=== PATIENT | male | born 1955 | race Caucasian/White ===

== ENCOUNTER 2017-11-05 12:23 | Day surgery (SDC) | payer OTHER ==
[~2017-11-05] VITALS: Ht 182.9 cm; Wt 81.8 kg
--- NOTE | ~2017-11-05 | OP ---
PATIENT NAME: GUERA CEDEÑO MEDICAL RECORD: [id number] :53 LOCATION:D.MS [id number] ADMISSION DATE:11/05/17 SURGEON: GLENNA RAMIREZ, DATE OF OPERATION: 11/05/2017 PROCEDURE PERFORMED: Right olecranon open reduction internal fixation. PREOPERATIVE DIAGNOSIS: Closed displaced right olecranon fracture, intraarticular. POSTOPERATIVE DIAGNOSIS: Closed displaced right olecranon fracture, intraarticular. INDICATIONS: Mr. Cedeño is a 62-year-old male who fell about 4-5 feet off ladder today onto his right elbow and came to the ER after being very swollen and tender and x-rays and CT was taken and seen to have a displaced olecranon fracture that is comminuted and the ER called me and I looked at the x-rays and I asked when he last ate which was at 7 this morning, so decided to fix it today. I discussed the procedure with him as well as the risks and benefits including damage to nerves, vessels, numbness, tingling, need for further surgery, infection, loss of fixation. He was understanding of this as well as loss of motion of the elbow and he consented to procedure. DESCRIPTION OF PROCEDURE: The patient was given a block in the preoperative area by anesthesia and then taken to the operative suite, laid in the left lateral decubitus position with her right arm up with an axillary roll underneath the axilla. LMA was placed. A tourniquet was placed high up on the arm and then the right arm was prepped and draped with a tourniquet under it. Once this was done, a timeout was performed and everyone was in agreeance with the correct side, site, and the patient. He had been given 2 grams Ancef, then marked out the incision starting medial and curving around the olecranon radially and then the right upper extremity was exsanguinated with an Esmarch and tourniquet was inflated. Tourniquet was up for 50 minutes. Careful dissection was made down to the olecranon itself pulling the flap more ulnar in order to expose the olecranon and a fracture was encountered. It was cleaned out with a curette and irrigated and then reduced. Once it was reduced, a K-wire was put in to hold it in place. Then, the olecranon plate was put on and a K-wire was put in the olecranon plate. Once they were in satisfactory position, a locking screw was placed in the plate and then a compression screw more distally with a washer. Then, the long screw through the olecranon process itself into the ulna was put in place, a 55 cortical screw was put in that 55-mm. We then locked 1 more screw more proximally into the proximal fracture fragment and then locked 3 more screws distally with a total of 7 screws in the plate, a Biomet plate. This is all done under fluoroscopy with a nice reduction of the fracture on x-rays and the plate was sitting in good position on the ulna. To stable elbow, it was ranged, seem to have full range of motion and the tourniquet was let down at 50 minutes. After tourniquet was let down, any bleeders were coagulated and then the skin was closed with 2-0 Vicryl and inverted interrupted fashion and then 4-0 Monocryl was run on the skin. Then, a ZipLine was placed over that and then Adaptic, 4 x 4s, ABDs and Webril were wrapped on that and a well-padded splint was placed anteriorly with the arm in extension on the anterior surface of the arm, secured with an Ji wrap, 6 inch and 4 inch. The patient was then awakened and taken to recovery in stable condition. Blood loss was approximately 50 mL. OPERATIVE REPORT [id number] GUERA CEDEÑO COMPLICATIONS: None. TRANSINT:[id number] Voice Confirmation ID: [id number] DOCUMENT ID: [id number] GLENNA RAMIREZ DO at 1017 CC: [id number] DICTATION DATE: 11/05/17 230 COPY EDITOR: 11/06/17 0341 ADM IN [facility] [address] [place] [address]
[2017-11-05] MEDS ORDERED: LISINOPRIL-HCTZ1 T13 PO (23:57)
[2017-11-06] VITALS: BP 141/89
[2017-11-06 03:23] VITALS: BP 146/81; Ht 182.9 cm; Wt 81.8 kg
[2017-11-06 04:00] VITALS: BP 101/57
[2017-11-06 06:32] LABS: BASOPHILS 0.1 % (0-2); EOSINOPHILS 0 % (0-7); HEMATOCRIT 44.3 % (42.0-54.0); HEMOGLOBIN 15.2 g/dL (13.5-17.5); IMMATURE GRANULOCYTES 0.1 % (0-5); LYMPHOCYTES 5.9 % (15-50); MCH 32.7 pg (26.0-34.0); MCHC 34.3 g/dL (31.0-37.0); MCV 95.3 fL (80.0-100.0); MEAN PLATELET VOLUME 9.8 fL (7.4-10.4); MONOCYTES 7.1 % (2-11); NEUTROPHILS 86.8 % (40-80); PLATELET COUNT 214 10x3/uL (130-400); RBC 4.65 10x6/uL (4.20-6.10); RDW 12.8 % (11.5-14.5); WBC 8.1 10x3/uL (4.8-10.8)
[2017-11-06 06:58] LABS: ALBUMIN 3.2 g/dL (3.4-5.0); ALKALINE PHOSPHATASE 69 U/L (46-116); ALT (SGPT) 24 U/L (10-68); BILIRUBIN - TOTAL 0.75 mg/dL (0.2-1.3); CALC OSMOLALITY 277 mosm/kg (275-300); CALCIUM 8.5 mg/dL (8.5-10.1); CARBON DIOXIDE 30.8 mmol/L (21.0-32.0); CHLORIDE - SERUM 100 mmol/L (98-107); POTASSIUM - SERUM 4.3 mmol/L (3.5-5.1); PROTEIN - SERUM 6.2 g/dL (6.4-8.2); SODIUM 137 mmol/L (136-145); UREA NITROGEN 11 mg/dL (7-18); eGFR NON AFRICAN AMERICAN 80 mL/min (90-120)
[2017-11-06 07:01] LABS: GLUCOSE 193 mg/dL (74-106)
[2017-11-06 08:10] VITALS: BP 107/62
[2017-11-06 11:31] VITALS: BP 127/69
[2017-11-06] MEDS ORDERED: OXYCODONE HCL5 MG PO (11:35)
[2017-11-06] MEDS ORDERED: VISTARIL50 MG PO (11:36)
== END 2017-11-06 14:59 | disposition home or self-care (01) ==
LOC: OBSVTIME → D.ER 12:23 → D.OPS 12:23 → EDSTATUS 13:15 → D.MS 16:45 → D.ER 16:45 → OBSVTIME 16:45 → D.OPS 11-06 14:59 → D.MS 11-06 14:59
PROVIDERS: Family Medicine
DX: S52.031A Displaced fracture of olecranon process with intraarticular extension of right ulna, initial encounter for closed fracture (principal); F17.200 Nicotine dependence, unspecified, uncomplicated; Z01.812 Encounter for preprocedural laboratory examination

== ENCOUNTER 2018-01-21 08:24 | Emergency (ER) | payer MEDICAID ==
[2017-11-06 03:23] VITALS: BMI 25.1
[~2018-01-21 08:24] MED LIST: LISINOPRIL-HCTZ1 T13 PO; OXYCODONE HCL5 MG PO; VISTARIL50 MG PO
[2018-01-21 10:48] LABS: BASOPHILS 0.6 % (0-2); EOSINOPHILS 2.8 % (0-7); HEMATOCRIT 47.9 % (42.0-54.0); HEMOGLOBIN 16.1 g/dL (13.5-17.5); IMMATURE GRANULOCYTES 0.2 % (0-5); LYMPHOCYTES 26.8 % (15-50); MCH 31.9 pg (26.0-34.0); MCHC 33.6 g/dL (31.0-37.0); MEAN PLATELET VOLUME 9.2 fL (7.4-10.4); MONOCYTES 11.2 % (2-11); NEUTROPHILS 58.4 % (40-80); PLATELET COUNT 251 10x3/uL (130-400); RBC 5.04 10x6/uL (4.20-6.10); WBC 8.5 10x3/uL (4.8-10.8)
[2018-01-21 10:55] LABS: INR 0.97 (0.85-1.17); PROTIME 12.5 SECONDS (11.6-15.0)
[2018-01-21 11:00] LABS: ALBUMIN 3.4 g/dL (3.4-5.0); ALKALINE PHOSPHATASE 97 U/L (46-116); ALT (SGPT) 32 U/L (10-68); CALC OSMOLALITY 282 mosm/kg (275-300); CALCIUM 9.4 mg/dL (8.5-10.1); CARBON DIOXIDE 32.3 mmol/L (21.0-32.0); CHLORIDE - SERUM 106 mmol/L (98-107); POTASSIUM - SERUM 4.4 mmol/L (3.5-5.1); PROTEIN - SERUM 6.7 g/dL (6.4-8.2); SODIUM 142 mmol/L (136-145); UREA NITROGEN 14 mg/dL (7-18); eGFR NON AFRICAN AMERICAN 80 mL/min (90-120)
[2018-01-21 11:05] LABS: GLUCOSE 87 mg/dL (74-106)
== END 2018-01-21 12:00 | disposition home or self-care (01) ==
LOC: D.ER 08:24
PROVIDERS: Family Medicine
DX: S53.124A Posterior dislocation of right ulnohumeral joint, initial encounter (principal); X58.XXXA Exposure to other specified factors, initial encounter; Y93.89 Activity, other specified; Y92.019 Unspecified place in single-family (private) house as the place of occurrence of the external cause; T84.098A Other mechanical complication of other internal joint prosthesis, initial encounter

== ENCOUNTER 2018-02-21 07:26 | Day surgery (SDC) | payer MEDICAID ==
[~2018-02-21] VITALS: Ht 182.9 cm; Wt 79.4 kg
--- NOTE | ~2018-02-21 | OP ---
PATIENT NAME: GUERA CEDEÑO MEDICAL RECORD: [id number] :53 LOCATION:D.OPS ADMISSION DATE: SURGEON: TIMMY ORTIZ MD DATE OF OPERATION: 02/21/2018 PREOPERATIVE DIAGNOSIS: Failed ORIF right olecranon fracture. POSTOPERATIVE DIAGNOSIS: Failed ORIF right olecranon fracture. PROCEDURE: 1. Revision right olecranon fracture. 2. Addition of bone graft allograft (Vitoss). SURGEON: Timmy Ortiz MD ANESTHESIA: General. INTRAOPERATIVE COMPLICATIONS: None. SUMMARY OF PATHOLOGIC FINDINGS: Since, the patient had a fibrous nonunion of the olecranon fracture, it is my understanding that the patient did demolition 2 days after his prior ORIF and had a rather immediate failure of fixation, did not want anything done; however, because he is unable to extend his elbow and had continued pain, he presented late and asked to have this revised. After discussing the risks, hazards and benefits associated with this and all the perioperative postoperative potential, the patient desired to have the surgery done. OPERATIVE SUMMARY IN DETAIL: After obtaining the appropriate preoperative orthopedic surgery consent as well as anesthetic consultation, evaluation and clearance, the patient was brought to the operating room and placed in the operating table in supine position. After general laryngeal mask airway was administered, tourniquet was placed in the proximal aspect of the right upper extremity. Right upper extremity was then prepped and draped in routine sterile fashion. The arm was elevated and exsanguinated, tourniquet was inflated to 250 mmHg. Previously used incision was also used again. It was taken down to the level of the periosteum, which was gently reflected to reveal the plate. Serial and sequential removal of all the Biomet screws and hardware was done. This was followed by complete takedown of the fibrous union all the way to the joint with visualization, both under fluoroscopy as well as direct visualization. At this point, spcpm-jm-rdess reduction clamps were utilized. It did come back together nicely on x-ray. Hsysn-sb-bvgbgx were taken down again and the Vitoss bone graft was then packed into the graft. It was then reduced again as seen on fluoroscopy, held in place with 2 bnyed-fh-wiipo clamps while the guide pin for the 6.5 Asnis screw was placed down the shaft of the ulna on fluoroscopic planes both AP and lateral. A 120 mm long thread screw was put into place with good compression; however, on the lateral film, the compression was not complete at the joint itself. A second 5-0 double compression screw from Arielle was placed just proximal to this outside the joint, but into the coracoid itself resulting in excellent shinto of the joint line itself. Having completed this, the wound was copiously irrigated. The fascia and periosteum was closed with #1 Vicryl followed by 2-0 Vicryl and skin sivan. Sterile dressings were applied. Tourniquet was deflated. The patient was placed in a posterior splint. He was then awakened, LMA was removed. He was taken to the recovery room in stable condition. All final needle and sponge counts were correct. OPERATIVE REPORT [id number] GUERA CEDEÑO TRANSLEA:[id number] Voice Confirmation ID: [id number] DOCUMENT ID: [id number] DIANA CHAHAL, TIMMY KELLY at 1333 CC: [id number] DICTATION DATE: 02/21/18 1207 PROFESSOR OF BUSINESS ADMINISTRATION: 02/21/18 1318 [facility] [address] [place] [address]
[2018-02-21 07:59] LABS: HEMATOCRIT 47.7 % (42.0-54.0); HEMOGLOBIN 16.7 g/dL (13.5-17.5); MCH 32.6 pg (26.0-34.0); MEAN PLATELET VOLUME 9.9 fL (7.4-10.4); RBC 5.13 10x6/uL (4.20-6.10); RDW 13.7 % (11.5-14.5); WBC 8.1 10x3/uL (4.8-10.8)
[2018-02-21 08:11] VITALS: BP 170/106; Ht 182.9 cm; Wt 79.4 kg
[2018-02-21 08:11] LABS: CALC OSMOLALITY 278 mosm/kg (275-300); CALCIUM 9.2 mg/dL (8.5-10.1); CARBON DIOXIDE 32.9 mmol/L (21.0-32.0); CHLORIDE - SERUM 101 mmol/L (98-107); GLUCOSE 106 mg/dL (74-106); SODIUM 139 mmol/L (136-145); UREA NITROGEN 14 mg/dL (7-18); eGFR NON AFRICAN AMERICAN 80 mL/min (90-120)
[2018-02-21] MEDS ORDERED: PERCOCET 10/3251 TA1 PO (12:10)
== END 2018-02-21 14:10 | disposition home or self-care (01) ==
LOC: D.OPS 07:26 → D.PAN 10:00 → D.OPS 10:30 → D.PAN 11:40 → D.OPS 13:15 → D.PAN 13:15 → D.OPS 14:10
PROVIDERS: Anesthesiology
DX: S52.021K Displaced fracture of olecranon process without intraarticular extension of right ulna, subsequent encounter for closed fracture with nonunion (principal); Z01.812 Encounter for preprocedural laboratory examination

== ENCOUNTER 2018-06-07 09:07 | Emergency (ER) | payer MEDICAID ==
[~2018-06-07] VITALS: Ht 182.9 cm; Wt 79.5 kg
[~2018-06-07 09:07] MED LIST changes: +PERCOCET 10/3251 TA1 PO
[2018-06-07 09:11] VITALS: Ht 182.9 cm; Wt 79.5 kg
[2018-06-07 09:31] LABS: APPEARANCE CLEAR (CLEAR); BILIRUBIN NEGATIVE (NEGATIVE); COLOR YELLOW (YELLOW); GLUCOSE NEGATIVE (NEGATIVE); KETONE NEGATIVE (NEGATIVE); NITRITE NEGATIVE (NEGATIVE); PROTEIN NEGATIVE (NEGATIVE); UROBILINOGEN NORMAL (NORMAL)
[2018-06-07] MEDS ORDERED: NORCO 7.5/325 T1 TA1 PO (11:21)
[2018-06-07 11:41] VITALS: BP 129/93
== END 2018-06-07 11:34 | disposition home or self-care (01) ==
LOC: D.ER 09:07
PROVIDERS: Emergency Medicine
DX: M54.5 Low back pain (principal); K80.80 Other cholelithiasis without obstruction; I10 Essential (primary) hypertension; F17.200 Nicotine dependence, unspecified, uncomplicated

== ENCOUNTER 2018-06-25 19:13 | Emergency (ER) | payer MEDICAID ==
[~2018-06-25] VITALS: Ht 182.9 cm; Wt 77.3 kg
[~2018-06-25 19:13] MED LIST changes: +NORCO 7.5/325 T1 TA1 PO
[2018-06-25 19:23] VITALS: Ht 182.9 cm; Wt 77.3 kg
[2018-06-25 19:39] LABS: BASOPHILS 0.2 % (0-2); EOSINOPHILS 3.1 % (0-7); HEMATOCRIT 46.6 % (42.0-54.0); HEMOGLOBIN 16.8 g/dL (13.5-17.5); IMMATURE GRANULOCYTES 0.3 % (0-5); LYMPHOCYTES 18.2 % (15-50); MCH 34.2 pg (26.0-34.0); MCHC 36.1 g/dL (31.0-37.0); MCV 94.9 fL (80.0-100.0); MEAN PLATELET VOLUME 9.4 fL (7.4-10.4); MONOCYTES 11.4 % (2-11); NEUTROPHILS 66.8 % (40-80); RBC 4.91 10x6/uL (4.20-6.10); RDW 12.6 % (11.5-14.5); WBC 11.8 10x3/uL (4.8-10.8)
[2018-06-25 19:45] LABS: PLATELET COUNT 250 10x3/uL (130-400)
[2018-06-25 19:59] LABS: ALBUMIN 3.6 g/dL (3.4-5.0); ALKALINE PHOSPHATASE 83 U/L (46-116); ALT (SGPT) 23 U/L (10-68); AMYLASE - SERUM 55 U/L (25-115); BILIRUBIN - TOTAL 0.15 mg/dL (0.2-1.3); CALC OSMOLALITY 279 mosm/kg (275-300); CALCIUM 9.5 mg/dL (8.5-10.1); CARBON DIOXIDE 29.9 mmol/L (21.0-32.0); CHLORIDE - SERUM 102 mmol/L (98-107); CREATININE - SERUM 0.9 mg/dL (0.6-1.3); GLUCOSE 125 mg/dL (74-106); LIPASE 158 U/L (73-393); POTASSIUM - SERUM 3.5 mmol/L (3.5-5.1); PROTEIN - SERUM 6.6 g/dL (6.4-8.2); SODIUM 139 mmol/L (136-145); UREA NITROGEN 15 mg/dL (7-18); eGFR NON AFRICAN AMERICAN > 90 mL/min (90-120)
[2018-06-25 20:02] LABS: APPEARANCE CLEAR (CLEAR); COLOR YELLOW (YELLOW)
[2018-06-25 20:03] LABS: BILIRUBIN NEGATIVE (NEGATIVE); GLUCOSE NEGATIVE (NEGATIVE); KETONE NEGATIVE (NEGATIVE); NITRITE NEGATIVE (NEGATIVE); PROTEIN NEGATIVE (NEGATIVE); UROBILINOGEN NORMAL (NORMAL)
[2018-06-25] MEDS ORDERED: TYLENOL W/CODEI1 TAB PO (23:12)
[2018-06-25] MEDS ORDERED: ZOFRAN ODT4 MG/UDTAB PO (23:12)
[2018-06-25 23:40] VITALS: BP 138/76
[2018-07-05] MEDS ORDERED: [UNRECOGNIZED DRUG - OTHER] PO (08:50)
== END 2018-06-25 23:41 | disposition home or self-care (01) ==
LOC: D.ER 19:13
PROVIDERS: Family Medicine
DX: K80.20 Calculus of gallbladder without cholecystitis without obstruction (principal); I10 Essential (primary) hypertension; F17.200 Nicotine dependence, unspecified, uncomplicated

== ENCOUNTER 2018-07-06 07:45 | Day surgery (SDC) | payer MEDICAID ==
[2018-07-05 09:28] LABS: HEMATOCRIT 51.2 % (42.0-54.0); HEMOGLOBIN 18.1 g/dL (13.5-17.5); MCH 34.1 pg (26.0-34.0); MCHC 35.4 g/dL (31.0-37.0); MCV 96.4 fL (80.0-100.0); MEAN PLATELET VOLUME 9.6 fL (7.4-10.4); RBC 5.31 10x6/uL (4.20-6.10); RDW 12.8 % (11.5-14.5); WBC 7.5 10x3/uL (4.8-10.8)
[2018-07-05 09:40] LABS: CALC OSMOLALITY 284 mosm/kg (275-300); CARBON DIOXIDE 33.1 mmol/L (21.0-32.0); CHLORIDE - SERUM 103 mmol/L (98-107); GLUCOSE 104 mg/dL (74-106); POTASSIUM - SERUM 4.3 mmol/L (3.5-5.1); SODIUM 143 mmol/L (136-145); UREA NITROGEN 13 mg/dL (7-18); eGFR NON AFRICAN AMERICAN 80 mL/min (90-120)
[~2018-07-06] VITALS: Ht 182.9 cm; Wt 78.5 kg
[~2018-07-06 07:45] MED LIST changes: +TYLENOL W/CODEI1 TAB PO; +ZOFRAN ODT4 MG/UDTAB PO; +[UNRECOGNIZED DRUG - OTHER] PO
[2018-07-06 08:46] VITALS: BP 114/78; Ht 182.9 cm; Wt 78.5 kg
[2018-07-06] MEDS ORDERED: HYDROCODON-ACE1 EAC7 PO (13:22)
== END 2018-07-06 16:50 | disposition home or self-care (01) ==
LOC: D.OPS 07:45 → D.PAN 10:00 → D.OPS 10:00
PROVIDERS: Anesthesiology
DX: K80.10 Calculus of gallbladder with chronic cholecystitis without obstruction (principal)

== ENCOUNTER → 2019-03-13 13:10 | Outpatient (CLI) | payer MEDICAID ==
[2018-07-06 08:46] VITALS: BMI 23.5
[~2019-03-13 13:10] MED LIST changes: +HYDROCODON-ACE1 EAC7 PO
--- NOTE | 2019-03-14 13:05 | EC ---
PATIENT:GUERA CEDEÑO DATE OF SERVICE: 03/13/19 SEX: M MEDICAL RECORD: [id number] DATE OF : 53 [facility] AGE [facility] PAT[facility]: 63 ADMISSION DATE: 03/13/19 REFERRING PHYSICIAN: INTERPRETING PHYSICIAN: LUIS CANSECO MD ECHOCARDIOGRAM REPORT ECHO CHARGES 4 ECHO COMPLETE Date: 03/13/19 CLINICAL DIAGNOSIS: MURMUR/GIVENS/PALPITATIONS/EDEMA H/O HTN ECHOCARDIOGRAPHIC MEASUREMENTS (adult normal given) AC root (d.<3.7cm) 3.1 cm LV Septum d (<1.2 cm> 1.2 cm Valve Excursion 2.1 cm LV Septum (systole) 1.8 cm Left Atria (s.<4.0cm> 3.6 cm LVPW d(<1.2cm) 1.2 cm RV (d.<2.3cm) 2.4 cm LVPW (sytole) 1.8 cm LV diastole(<5.6CM) 4.8 cm MV E-F(>70mm/sec) cm LV systole 2.3 cm LVOT Diameter 1.9 cm MV exc.(>10mm) cm Est.ejection fraction (50-75%) % DOPPLER: LVIT cm/sec A 57.0 cm/sec E 69.0 cm/sec LA cm/sec RVSP 32.0 mmHg LVOT 95.0 cm/sec AOP1/2T m/s Asc. Ao 118 cm/sec RVOT 68.0 cm/sec RA cm/sec PA 101 cm/sec AV Gradient Peak 5.6 mmHg AV Mean 3.1 mmHg AV Area 2.2 cm MV Gradient Peak 2.1 mmHg MV Mean 1.2 mmHg MV Area cm COMMENTS: OP - HC Mate Chief: 1 MARY ALEJOOE Perl Developer: 3 Dr. Gallardo TAPE# PACS Pericardial Effusion N DATE OF SERVICE: 03/13/2019 Adequate 2-D, color-flow and spectral Doppler, and M-mode. Borderline LVH. LV internal dimensions are normal. Wall motion is normal. EF is greater than or equal to 55%. Aortic valve is tricuspid. No evidence of stenosis by Doppler interrogation. Left atrium is normal. Mitral valve shows no prolapse. Trace MR. Right-sided chambers are grossly normal. Trace TR. TRANSINT:[id number] Voice Confirmation ID: [id number] DOCUMENT ID: [id number] ECHOCARDIOGRAM REPORT [id number] GUERA CEDEÑO GREGORY A MD at 1305 CC: [id number] DICTATION DATE: 03/13/19 1519 METAL BONDING ASSEMBLER: 03/13/19 1703 DEP CLI 03/13/19 [place] [id number] [place] [id number]
--- NOTE | 2019-03-14 13:05 | ST ---
PATIENT:GUERA CEDEÑO MEDICAL RECORD: [id number] SEX: M LOCATION:[facility] ORDER #: ADMISSION DATE: 03/13/19 AGE OF PATIENT: 63 REFERRING PHYSICIAN: INTERPRETING PHYSICIAN: LUIS CANSECO MD DATE OF SERVICE: 03/13/2019 TREADMILL STRESS TEST Baseline ECG is normal. He exercised for 10 minutes of Jim protocol. Maximum heart rate 153 beats per minute, greater than 85% of max predicted. No ECG changes of ischemia. No symptoms of ischemia. Normal blood pressure response to exercise. Good exercise tolerance for age. No arrhythmias noted. TRANSINT:[id number] Voice Confirmation ID: [id number] DOCUMENT ID: [id number] LUIS CANSECO MD at 1305 CC: [id number] DICTATION DATE: 03/13/19 1512 EDITOR MAP: 03/13/19 1650 [facility] CLI 03/13/19 [place] [address] [place] [address]
== END | disposition home or self-care (01) ==
LOC: D.HCCARDIO 13:10
PROVIDERS: ATTEND Internal Medicine Interventional Cardiology
DX: R00.2 Palpitations (principal)

== ENCOUNTER 2020-01-07 20:52 | Emergency (ER) | payer MEDICARE ==
[~2020-01-07] VITALS: Ht 182.9 cm; Wt 83.8 kg
[2020-01-07 20:59] VITALS: Ht 182.9 cm; Wt 83.8 kg
[2020-01-07] MEDS ORDERED: NEURONTIN600 MG (21:01)
[2020-01-07 21:23] LABS: BASOPHILS 0.3 % (0-2); EOSINOPHILS 3.2 % (0-7); HEMOGLOBIN 15.5 g/dL (13.5-17.5); IMMATURE GRANULOCYTES 0.2 % (0-5); LYMPHOCYTES 20.7 % (15-50); MCHC 33.7 g/dL (31.0-37.0); MCV 98.1 fL (80.0-100.0); MEAN PLATELET VOLUME 9.3 fL (7.4-10.4); MONOCYTES 10.4 % (2-11); NEUTROPHILS 65.2 % (40-80); PLATELET COUNT 234 10x3/uL (130-400); RBC 4.69 10x6/uL (4.20-6.10); RDW 13.9 % (11.5-14.5); WBC 8.8 10x3/uL (4.8-10.8)
[2020-01-07 21:31] LABS: CALC OSMOLALITY 278 mosm/kg (275-300); CALCIUM 8.4 mg/dL (8.5-10.1); CARBON DIOXIDE 31.7 mmol/L (21.0-32.0); CHLORIDE - SERUM 104 mmol/L (98-107); CREATININE - SERUM 0.9 mg/dL (0.6-1.3); GLUCOSE 84 mg/dL (74-106); INR 1.01 (0.85-1.17); POTASSIUM - SERUM 3.5 mmol/L (3.5-5.1); PROTIME 13.2 SECONDS (11.6-15.0); SODIUM 140 mmol/L (136-145); UREA NITROGEN 14 mg/dL (7-18); eGFR NON AFRICAN AMERICAN 90 mL/min (90-120)
[2020-01-07 21:32] LABS: APTT 30.6 SECONDS (22.8-39.4)
[2020-01-07 21:48] LABS: ALBUMIN 3.6 g/dL (3.4-5.0); ALKALINE PHOSPHATASE 99 U/L (30-120); ALT (SGPT) 28 U/L (10-68); BILIRUBIN - TOTAL 0.33 mg/dL (0.2-1.3); CKMB 4.3 U/L (0.0-3.6); CREATINE KINASE 242 UL (21-232); MAGNESIUM - SERUM 1.8 mg/dL (1.8-2.4); PRO BNP 179 pg/mL (0-125); PROTEIN - SERUM 6.8 g/dL (6.4-8.2); TROPONIN-I < 0.017 ng/mL (0.000-0.060)
[2020-01-07] MEDS ORDERED: CATAPRES0.2 MG PO (22:22)
[2020-01-07 22:36] VITALS: BP 170/99
== END 2020-01-07 22:35 | disposition home or self-care (01) ==
LOC: D.ER 20:52
PROVIDERS: Family Medicine
DX: I10 Essential (primary) hypertension (principal); Z72.0 Tobacco use; M25.473 Effusion, unspecified ankle; M79.89 Other specified soft tissue disorders

== ENCOUNTER → 2020-12-04 17:46 | Outpatient (CLI) | payer MEDICARE ==
[2020-01-07 20:59] VITALS: BMI 25.0
[~2020-12-04 17:46] MED LIST changes: +CATAPRES0.2 MG PO; +NEURONTIN600 MG
== END | disposition home or self-care (01) ==
LOC: D.LABREF 17:46
PROVIDERS: ATTEND Orthopaedic Surgery
DX: M17.12 Unilateral primary osteoarthritis, left knee (principal)

== ENCOUNTER 2020-12-17 14:05 | Observation (INO) | payer OTHER ==
[~2020-12-17] VITALS: Ht 182.9 cm; Wt 74.8 kg
[~2020-12-17 14:05] MED LIST changes: -NEURONTIN600 MG; +NEURONTIN600 MG PO
[2020-12-27] MEDS ORDERED: METOPROLOL TART25 MG PO (14:04)
[2020-12-27] MEDS ORDERED: TEMAZEPAM30 MG PO (14:04)
[2020-12-27 14:59] LABS: BASOPHILS 0.4 % (0-2); EOSINOPHILS 2.3 % (0-7); HEMATOCRIT 47.3 % (42.0-54.0); HEMOGLOBIN 15.9 g/dL (13.5-17.5); IMMATURE GRANULOCYTES 0.2 % (0-5); LYMPHOCYTE ABS# 1.83 10x3/uL (1.32-3.57); LYMPHOCYTES 18.1 % (15-50); MCH 33.8 pg (26.0-34.0); MCHC 33.6 g/dL (31.0-37.0); MCV 100.6 fL (80.0-100.0); MEAN PLATELET VOLUME 10.4 fL (7.4-10.4); NEUTROPHIL ABS# 6.97 10x3/uL (1.78-5.38); PLATELET COUNT 209 10x3/uL (130-400); RDW 13.7 % (11.5-14.5); WBC 10.1 10x3/uL (4.8-10.8)
[2020-12-27 15:06] LABS: APTT 31.5 SECONDS (22.8-39.4); INR 1.16 (0.85-1.17); PROTIME 13.7 SECONDS (11.6-15.0)
[2020-12-27 15:21] LABS: CALC OSMOLALITY 282 mosm/kg (275-300); CALCIUM 8.7 mg/dL (8.5-10.1); CARBON DIOXIDE 31.3 mmol/L (21.0-32.0); CHLORIDE - SERUM 103 mmol/L (98-107); CREATININE - SERUM 0.9 mg/dL (0.6-1.3); GLUCOSE 97 mg/dL (74-106); POTASSIUM - SERUM 3.5 mmol/L (3.5-5.1); SODIUM 142 mmol/L (136-145); UREA NITROGEN 12 mg/dL (7-18); eGFR NON AFRICAN AMERICAN 90 mL/min (90-120)
[2020-12-27 15:33] LABS: BILIRUBIN NEGATIVE (NEGATIVE); KETONE NEGATIVE (NEGATIVE); NITRITE NEGATIVE (NEGATIVE); UROBILINOGEN NORMAL mg/dL (< 2)
[2020-12-31] VITALS (11 sets, daily range): BP systolic 115–154; BP diastolic 67–91; BMI 21.7; BMI 22.4
[2020-12-31 14:59] LABS: BASOPHILS 0.4 % (0-2); EOSINOPHILS 0.3 % (0-7); HEMATOCRIT 43.4 % (42.0-54.0); HEMOGLOBIN 14.3 g/dL (13.5-17.5); IMMATURE GRANULOCYTES 0.1 % (0-5); LYMPHOCYTE ABS# 0.69 10x3/uL (1.32-3.57); LYMPHOCYTES 7.7 % (15-50); MCH 32.9 pg (26.0-34.0); MCHC 32.9 g/dL (31.0-37.0); MCV 99.8 fL (80.0-100.0); MEAN PLATELET VOLUME 9.9 fL (7.4-10.4); MONOCYTES 1.6 % (2-11); NEUTROPHIL ABS# 8.06 10x3/uL (1.78-5.38); NEUTROPHILS 89.9 % (40-80); PLATELET COUNT 226 10x3/uL (130-400); RBC 4.35 10x6/uL (4.20-6.10); RDW 13.5 % (11.5-14.5)
[2020-12-31 15:20] LABS: ALBUMIN 3.1 g/dL (3.4-5.0); ALKALINE PHOSPHATASE 92 U/L (30-120); ALT (SGPT) 19 U/L (10-68); BILIRUBIN - TOTAL 0.25 mg/dL (0.2-1.3); CALC OSMOLALITY 286 mosm/kg (275-300); CALCIUM 8.2 mg/dL (8.5-10.1); CARBON DIOXIDE 28.6 mmol/L (21.0-32.0); CHLORIDE - SERUM 105 mmol/L (98-107); CREATININE - SERUM 0.9 mg/dL (0.6-1.3); GLUCOSE 131 mg/dL (74-106); POTASSIUM - SERUM 3.6 mmol/L (3.5-5.1); PROTEIN - SERUM 6.1 g/dL (6.4-8.2); SODIUM 141 mmol/L (136-145); UREA NITROGEN 23 mg/dL (7-18); eGFR NON AFRICAN AMERICAN 90 mL/min (90-120)
--- NOTE | 2020-12-31 18:50 | MORECARE ---
CASE MANAGEMENT DISCHARGE SUMMARY PATIENT: GUERA CEDEÑO UNIT: [id number] ADM DATE: 12/31/20 AGE: 65 : 53 SEX: M ROOM/BED: D.1213 AUTHOR: MIGUEL ÁNGEL,DOC PHYSICIAN: REFERRING PHYSICIAN: GLENNA RAMIREZ DO DATE OF SERVICE: 12/31/20 Case Management Discharge Planning Summary COMMENTS ENTERED DATE: 12/31/20 18:47 CT COMMENT TYPE: Discharge Planning REVIEWER: Adis Morrell CM met with patient to complete DC plan and to evaluate needs. Patient lives independently with his spouse, Adrienne Cedeño, . Patient stated that their home is safe and has electricity and running water. Patient stated that he has no problems paying for medications and his fills his medications at [facility]. Patient stated that his primary care physician is Dr. Woods. At discharge, the patient plans to return home feels this is a safe discharge. CM discussed availability of home health, rehab services, and medical equipment. Patient declined HHS, SNF, and IPR. Patient stated that he would like Outpatient therapy services with [facility] or [facility]. Patient stated that he would like a bedside commode possibly through [facility] or whichever service provided his CPM and Walker that arrived at his home. JACK signed and placed on chart. Patient voiced no other needs at this time and is satisfied with DC plan. Transportation provider at discharge will be with his spouse, Adrienne. CM will continue to follow and will assist as needed with dc plans/needs. ENTERED DATE: 12/31/20 17:19 CT COMMENT TYPE: Discharge Planning REVIEWER: Adis Morrell Late Entry for 1645. PAN delivered, explained, signed by the patient, and placed in chart. Signed form also left with the patient. DCP REVIEW SUMMARY ANTICIPATED D/C DATE: EXPECTED LOS : CASE STATUS: DCP Initiated INITIAL REVIEW: 12/31/2020 INITIAL REVIEWER: Adis Morrell FINAL DISCHARGE DISPOSITION: : FINAL REVIEWER: FINAL REVIEW DATE: DCP Focus Questions & Answers DCP Evaluation QUESTION: ANSWER Patient and/or caregiver agree upon recommended discharge plan? : Yes Family / Caregiver's ability to cope with chronic illness: : a. Adequate (ability to meet patient's medical needs, ensures patient attends medical appts.) Patient's current cognitive status: : *Oriented to person, place, situation, time and present Patient's ability to cope with chronic illness : d. No chronic illness Patient gives permission to discuss discharge plans with: (name, relationship and number) : spouse, Adrienne Cedeño, Does the patient have the ability to pay for or attain post discharge needs / services? : Yes Functional screen assessment: : Basic needs can adequately be met by self Family / Caregiver's ability to cope with chronic illness: : a. Adequate (ability to meet patient's medical needs, ensures patient attends medical appts.) Physical Status: : Independent with ADL's Equipment needed for post hospitalization: : Walker - Rolling Equipment needed for post hospitalization: : Bedside Commode Is there a likelihood that the patient will require additional services to return to the preadmission environment? : Yes Living Arrangements: : Home with Spouse/Significant Other Other Equipment comments: : CPM Patient with capacity for self-care or can be cared for in same environment as prior to hospitalization? : Yes Baseline cognitive status: : *Oriented to person, place, situation, time and present Medication Management: : Patient states can read and understand medication labels Medication Management: : Patient states can afford medications Pharmacy name(s): : [facility] on [address] Does Patient have transportation to get home and to follow-up medical appointments when discharged from the hospital? : Yes Would patient like to participate in any Care Coordination programs (if applicable): : Not applicable Does the patient have electricity at home? : Yes Does the patient have running water in their house? : Yes Equipment in use: : None Mental health screen: : No mental health history DCP Re-evaluation QUESTION: ANSWER Would patient like to participate in any Care Coordination programs (if applicable): : Not applicable PATIENT: GUERA CEDEÑO ENCOUNTER: [id number] MEDICAL RECORD#: [id number] ADMISSION DATE: 12/31/2020 DISCHARGE DATE: ATTENDING MD: GLENNA HICKEY : AGE: 65 MARITAL STATUS: M DC PLAN ID: [id number] FACILITY: [facility] PRINTED ON: 12/31/20 18:50 CT All edits/amendments must be made on the electronic document DICTATION DATE: 12/31/201849 PELLET POST INSPECTOR: ASHWIN 12/31/201849 RPT#: [id number] DC DATE: STATUS: ADM IN [facility] [address] [place] [address] END OF REPORT
--- NOTE | 2020-12-31 19:00 | NUR ---
REPORT GIVEN BY DARRYN METZGER
--- NOTE | 2020-12-31 20:00 | NUR ---
IN ROOM FOR VS AND ASSESSMENT. PT IS STILL VERY SLEEPY FROM SURGERY. PT IS STILL NUMB FROM HIS BLOCK. HE HAS A RIGHT FOREARM IV WITH 50 ML. OF 1/2 NORMAL SALINE. HIS CPM WAS JUST TAKEN OFF. HE HAS TEDS AND SCD'S/ LEFT KNEE HAS DEBORAH WRAP AROUND IT. PT WAS TAUGHT HOW TO USE HIS IS. HE REGISTERED 2500 ON HIS FIRST INHALATION. HE WAS CONSISTENT WITH THAT. PT IS IN THE ROOM WITH HIM.
--- NOTE | 2020-12-31 21:55 | NUR ---
ANTIBIOTIC [place] PT SLEEPING PILL GIVEN. NO NEW C/O OR NEEDS
--- NOTE | 2020-12-31 23:51 | NUR ---
PT WAS GIVEN PAIN MEDS FOR HIS KNEE. HE RATES HIS PAIN A 7. PT IS STILL PRETTY SLEEPY BUT TOOK PAIN MEDS WELL. HIS IS RESTING WELL IN THE ROOM WITH PT.
[2021-01-01 00:08] VITALS: BP 111/68
[2021-01-01 04:00] VITALS: BP 129/60
--- NOTE | 2021-01-01 06:33 | NUR ---
PT HAD A GOOD NIGHT. HE SLEPT MOST OF THE NIGHT. HE RECEIVED PAIN MEDS ABOUT THE TIME THE CPM WENT ON. IS IN THE ROOM. NO C/0 AT THIS TIME
--- NOTE | 2021-01-01 07:00 | OP ---
PATIENT NAME: GUERA CEDEÑO MEDICAL RECORD: [id number] :53 LOCATION:[facility] D.1213 ADMISSION DATE:12/31/20 SURGEON: CHILO RAMIREZ DO DATE OF OPERATION: 12/31/2020 PROCEDURE PERFORMED: Left total knee arthroplasty. PREOPERATIVE DIAGNOSIS: Left knee osteoarthritis. POSTOPERATIVE DIAGNOSIS: Left knee osteoarthritis. INDICATIONS: Mr. Cedeño is a 65-year-old male who has undergone several injections and nonoperative treatments for his left knee osteoarthritis. He is tried with dealing with that and dealing with the pain and limited activities due to the pain and loss of motion and he want something done surgically. He is aware of the risks including infection, bleeding, damage to nerves and vessels, need for further surgery, fracture, continued pain, arthrofibrosis, failure of implants, loosening of the implants, blood clots, and even and he signed the consent. SURGEON: Chilo Ramirez DO DESCRIPTION OF PROCEDURE: The patient received a block by anesthesia in the preoperative area and taken to the operative suite, laid in supine position, given general anesthetic and LMA was placed. The left lower extremity was then prepped and draped in sterile fashion. He had been given 2 grams of Ancef, 80 mg gentamicin, a gram of TXA. Once the left lower extremity was prepped and draped in sterile fashion, timeout was performed, everyone was in agreement with correct side, site, patient and procedure. I then marked out the incision, covered with an Ioban. Then, with a 10 blade scalpel, I made careful dissection down through the skin to the capsule and then used a fresh 10 blade to the medial parapatellar approach and everted the patella, took out part of the fat pad and milled down the patella. I then drilled for the 32 patella and irrigated out the patella. Mixed the cement, put the cement on the patella and on the implant and squeezed into place, removed the excess cement and left the squeezer on. While it was drying, I then flexed the knee up and used a drill to enter the intramedullary canal using intramedullary guide and pinned in the distal femur cutting guide on. I then cut the distal femur through the guide. I then exposed the proximal tibia and through the extramedullary guide, cut the proximal tibia, taken 2 off the medial side. I then had to recut and take 4 more off. I then removed the menisci also, coagulated any bleeding. The 10 extension block fit well and I then flexed the femur up and measured it to be a 9 with 3 degrees of external rotation. I then used a 4-in-1 cutting block and dalton wing to ensure there was no notching and cut the femur through the 4-in-1 cutting block. I then exposed the tibia, sized it to be an F, pinned on the tibial tray and impacted femoral trial on and put a 10 poly and then a 12 poly in between, it did very well. He was very stable in flexion and extension to varus and valgus stress. I then had to remove the patellar squeezer by that point and drilled the lug holes for the femur, removed the femoral trial, drilled the holes for the tibia, removed the tibial trial and irrigated thoroughly and then impacted on the tibial tray and the femur. I then put a poly in between and squeezed it into place, brought the knee into extension, put in 10% povidone iodine and 500 mL of normal saline solution and let it sit for a minute and then we irrigated out with over a liter of normal saline and put in the joint cocktail juice mixture and injected in the periosteum and the quads. OPERATIVE REPORT [id number] GUERA CEDEÑO The 12 poly fit very well and medial congruent bearing was very stable in varus and valgus stress in flexion and extension. We then put in Stephan, vancomycin, and tobramycin powder and closed the capsule with #1 Vicryl in lsctzq-it-znmwp fashion. Lito Espinoza, certified optician, closed the capsule on top of that with a running Stratafix #1. I then closed the skin with 2-0 Vicryl in an interrupted fashion. The plate was ZipLine on the knee, it was then dressed with Adaptic, 4 x 4s, ABD, cast padding and a 6-inch Ji wrap, CRISTAL hose up to the knee. He was awakened and taken to recovery in stable condition. BLOOD LOSS: Approximately 200 mL. COMPLICATIONS: None. TRANSINT:[id number] Voice Confirmation ID: [id number] DOCUMENT ID: [id number] CHILO RAMIREZ DO at 0700 CC: [id number] DICTATION DATE: 12/31/20 1335 COMPUTER FORWARDING SYSTEM MARKUP CLERK: 12/31/20 1748 ADM IN [facility] [address] [place] [id number]
--- NOTE | 2021-01-01 07:30 | NUR ---
AWAKE AND ALERT. ORIENTED X3. NO C/O AT THIS TIME. LUNGS ARE CLEAR BILATERALLY, NO COUGH NOTED. REPORTED USED IS INSTRUCTED. SKIN IS INTACT WITHOUT REDNESS EXCEPT INCISION TO LEFT KNEE WHICH HAS A DRY INTACT DRESSING IN PLACE. ON CPM AT THIS TIME. REMOVED PER STAFF. SL TO RIGHT FOREARM IS PATENT WITHOUT REDNESS AT INSERTION SITE. DENIES NEEDS.
[2021-01-01 07:46] VITALS: BP 152/90
[2021-01-01 07:52] LABS: BASOPHILS 0.2 % (0-2); EOSINOPHILS 1.1 % (0-7); HEMATOCRIT 41.8 % (42.0-54.0); HEMOGLOBIN 13.9 g/dL (13.5-17.5); IMMATURE GRANULOCYTES 0.3 % (0-5); LYMPHOCYTE ABS# 1.75 10x3/uL (1.32-3.57); LYMPHOCYTES 13.4 % (15-50); MCH 32.9 pg (26.0-34.0); MCHC 33.3 g/dL (31.0-37.0); MCV 98.8 fL (80.0-100.0); MEAN PLATELET VOLUME 10.3 fL (7.4-10.4); MONOCYTES 12.1 % (2-11); NEUTROPHIL ABS# 9.55 10x3/uL (1.78-5.38); NEUTROPHILS 72.9 % (40-80); PLATELET COUNT 266 10x3/uL (130-400); RBC 4.23 10x6/uL (4.20-6.10); RDW 13.4 % (11.5-14.5)
[2021-01-01 07:56] LABS: WBC 13.1 10x3/uL (4.8-10.8)
[2021-01-01 08:06] LABS: ALBUMIN 2.9 g/dL (3.4-5.0); ALKALINE PHOSPHATASE 88 U/L (30-120); ALT (SGPT) 18 U/L (10-68); BILIRUBIN - TOTAL 0.28 mg/dL (0.2-1.3); CALC OSMOLALITY 284 mosm/kg (275-300); CALCIUM 8.1 mg/dL (8.5-10.1); CARBON DIOXIDE 29.5 mmol/L (21.0-32.0); CHLORIDE - SERUM 105 mmol/L (98-107); CREATININE - SERUM 0.8 mg/dL (0.6-1.3); GLUCOSE 93 mg/dL (74-106); POTASSIUM - SERUM 3.7 mmol/L (3.5-5.1); PROTEIN - SERUM 5.1 g/dL (6.4-8.2); SODIUM 142 mmol/L (136-145); UREA NITROGEN 18 mg/dL (7-18); eGFR NON AFRICAN AMERICAN > 90 mL/min (90-120)
--- NOTE | 2021-01-01 09:00 | NUR ---
ATE MOST OF BREAKFAST. TOOK AM MEDS WITHOUT DIFFICULTY. DENIES NEEDS.
--- NOTE | 2021-01-01 09:46 | MORECARE ---
CASE MANAGEMENT DISCHARGE SUMMARY PATIENT: GUERA CEDEÑO UNIT: [id number] ADM DATE: 12/31/20 AGE: 65 : 54 SEX: M ROOM/BED: D.1213 AUTHOR: MIGUEL ÁNGEL,DOC PHYSICIAN: REFERRING PHYSICIAN: GLENNA RAMIREZ DO DATE OF SERVICE: 01/01/21 Case Management Discharge Planning Summary COMMENTS ENTERED DATE: 01/01/21 9:38 CT COMMENT TYPE: Discharge Planning REVIEWER: Vanessa Silva CM called [employer] and spoke with Chirag, he states they have delivered walker and CPM but will add a BSC to that and deliver that to the hospital today. I called Leeanne at [facility] on [facility] and his first PT VISIT IS SET UP FOR JANUARY 03 AT 1PM. I have informed patient and he states that he will have transportation to his OP PT visits and agrees with plan. Clinical and order faxed to [facility] PT. CM will continue to follow and assist with dc planning/needs. ENTERED DATE: 12/31/20 18:47 CT COMMENT TYPE: Discharge Planning REVIEWER: Adis Morrell CM met with patient to complete DC plan and to evaluate needs. Patient lives independently with his spouse, Adrienne Cedeño, . Patient stated that their home is safe and has electricity and running water. Patient stated that he has no problems paying for medications and his fills his medications at [facility]. Patient stated that his primary care physician is Dr. Woods. At discharge, the patient plans to return home feels this is a safe discharge. CM discussed availability of home health, rehab services, and medical equipment. Patient declined HHS, SNF, and IPR. Patient stated that he would like Outpatient therapy services with [facility] or [facility]. Patient stated that he would like a bedside commode possibly through [facility] or whichever service provided his CPM and Walker that arrived at his home. JACK signed and placed on chart. Patient voiced no other needs at this time and is satisfied with DC plan. Transportation provider at discharge will be with his spouse, Adrienne. CM will continue to follow and will assist as needed with dc plans/needs. ENTERED DATE: 12/31/20 17:19 CT COMMENT TYPE: Discharge Planning REVIEWER: Adis Morrell Late Entry for 1645. PAN delivered, explained, signed by the patient, and placed in chart. Signed form also left with the patient. DCP REVIEW SUMMARY ANTICIPATED D/C DATE: EXPECTED LOS : CASE STATUS: DCP Initiated INITIAL REVIEW: 12/31/2020 INITIAL REVIEWER: Adis Morrell FINAL DISCHARGE DISPOSITION: : FINAL REVIEWER: FINAL REVIEW DATE: DCP Focus Questions & Answers DCP Evaluation QUESTION: ANSWER Patient and/or caregiver agree upon recommended discharge plan? : Yes Family / Caregiver's ability to cope with chronic illness: : a. Adequate (ability to meet patient's medical needs, ensures patient attends medical appts.) Patient's current cognitive status: : *Oriented to person, place, situation, time and present Patient's ability to cope with chronic illness : d. No chronic illness Patient gives permission to discuss discharge plans with: (name, relationship and number) : spouse, Adrienne Cedeño, Does the patient have the ability to pay for or attain post discharge needs / services? : Yes Functional screen assessment: : Basic needs can adequately be met by self Family / Caregiver's ability to cope with chronic illness: : a. Adequate (ability to meet patient's medical needs, ensures patient attends medical appts.) Physical Status: : Independent with ADL's Equipment needed for post hospitalization: : Walker - Rolling Equipment needed for post hospitalization: : Bedside Commode Is there a likelihood that the patient will require additional services to return to the preadmission environment? : Yes Living Arrangements: : Home with Spouse/Significant Other Other Equipment comments: : CPM Patient with capacity for self-care or can be cared for in same environment as prior to hospitalization? : Yes Baseline cognitive status: : *Oriented to person, place, situation, time and present Medication Management: : Patient states can read and understand medication labels Medication Management: : Patient states can afford medications Pharmacy name(s): : [facility] [place] pharmacy on [address] Does Patient have transportation to get home and to follow-up medical appointments when discharged from the hospital? : Yes Would patient like to participate in any Care Coordination programs (if applicable): : Not applicable Does the patient have electricity at home? : Yes Does the patient have running water in their house? : Yes Equipment in use: : None Mental health screen: : No mental health history DCP Re-evaluation QUESTION: ANSWER Would patient like to participate in any Care Coordination programs (if applicable): : Not applicable PATIENT: GUERA CEDEÑO ENCOUNTER: [id number] MEDICAL RECORD#: [id number] ADMISSION DATE: 12/31/2020 DISCHARGE DATE: ATTENDING MD: GLENNA HICKEY : AGE: 65 MARITAL STATUS: M DC PLAN ID: [id number] FACILITY: [facility] PRINTED ON: 01/01/21 9:45 CT All edits/amendments must be made on the electronic document DICTATION DATE: 01/01/21944 POSTAL SERVICE CLERK: ASHWIN 01/01/21944 RPT#: [id number] DC DATE: STATUS: ADM IN [facility] [address] [place] [address] END OF REPORT
--- NOTE | 2021-01-01 09:50 | NUR ---
AMBULATED OVER 200 FEET IN HALLWAY WITH RW SBA. NO INCREAED PAIN WITH ACTIVITY. REQUESTED AND GIVEN PERCOCET PO FOR C/O LEEFT KNEE PAIN LEVEL 7. WILL MONITOR.
--- NOTE | 2021-01-01 11:35 | NUR ---
REMAINS UP IN CHAIR AT BEDSIDE. DENIES NEEDS.
--- NOTE | 2021-01-01 11:44 | MORECARE ---
CASE MANAGEMENT DISCHARGE SUMMARY PATIENT: GUERA CEDEÑO UNIT: [id number] ADM DATE: 12/31/20 AGE: 65 : 54 SEX: M ROOM/BED: D.1213 AUTHOR: MIGUEL ÁNGEL,DOC PHYSICIAN: REFERRING PHYSICIAN: GLENNA RAMIREZ DO DATE OF SERVICE: 01/01/21 Case Management Discharge Planning Summary COMMENTS ENTERED DATE: 01/01/21 9:38 CT COMMENT TYPE: Discharge Planning REVIEWER: Vanessa Silva CM called [employer] and spoke with Chirag, he states they have delivered walker and CPM but will add a BSC to that and deliver that to the hospital today. I called Leeanne at [facility] on [facility] and his first PT VISIT IS SET UP FOR JANUARY 03 AT 1PM. I have informed patient and he states that he will have transportation to his OP PT visits and agrees with plan. Clinical and order faxed to [facility] PT. CM will continue to follow and assist with dc planning/needs. ENTERED DATE: 12/31/20 18:47 CT COMMENT TYPE: Discharge Planning REVIEWER: Adis Morrell CM met with patient to complete DC plan and to evaluate needs. Patient lives independently with his spouse, Adrienne Cedeño, . Patient stated that their home is safe and has electricity and running water. Patient stated that he has no problems paying for medications and his fills his medications at [facility]. Patient stated that his primary care physician is Dr. Woods. At discharge, the patient plans to return home feels this is a safe discharge. CM discussed availability of home health, rehab services, and medical equipment. Patient declined HHS, SNF, and IPR. Patient stated that he would like Outpatient therapy services with [facility] or [facility]. Patient stated that he would like a bedside commode possibly through [employer] or whichever service provided his CPM and Walker that arrived at his home. JACK signed and placed on chart. Patient voiced no other needs at this time and is satisfied with DC plan. Transportation provider at discharge will be with his spouse, Adrienne. CM will continue to follow and will assist as needed with dc plans/needs. ENTERED DATE: 12/31/20 17:19 CT COMMENT TYPE: Discharge Planning REVIEWER: Adis Morrell Late Entry for 1645. PAN delivered, explained, signed by the patient, and placed in chart. Signed form also left with the patient. DCP REVIEW SUMMARY ANTICIPATED D/C DATE: EXPECTED LOS : CASE STATUS: DCP Initiated INITIAL REVIEW: 12/31/2020 INITIAL REVIEWER: Adis Morrell FINAL DISCHARGE DISPOSITION: : FINAL REVIEWER: FINAL REVIEW DATE: DCP Focus Questions & Answers DCP Evaluation QUESTION: ANSWER Patient and/or caregiver agree upon recommended discharge plan? : Yes Family / Caregiver's ability to cope with chronic illness: : a. Adequate (ability to meet patient's medical needs, ensures patient attends medical appts.) Patient's current cognitive status: : *Oriented to person, place, situation, time and present Patient's ability to cope with chronic illness : d. No chronic illness Patient gives permission to discuss discharge plans with: (name, relationship and number) : spouse, Adrienne Cedeño, Does the patient have the ability to pay for or attain post discharge needs / services? : Yes Functional screen assessment: : Basic needs can adequately be met by self Family / Caregiver's ability to cope with chronic illness: : a. Adequate (ability to meet patient's medical needs, ensures patient attends medical appts.) Physical Status: : Independent with ADL's Equipment needed for post hospitalization: : Walker - Rolling Equipment needed for post hospitalization: : Bedside Commode Is there a likelihood that the patient will require additional services to return to the preadmission environment? : Yes Living Arrangements: : Home with Spouse/Significant Other Other Equipment comments: : CPM Patient with capacity for self-care or can be cared for in same environment as prior to hospitalization? : Yes Baseline cognitive status: : *Oriented to person, place, situation, time and present Medication Management: : Patient states can read and understand medication labels Medication Management: : Patient states can afford medications Pharmacy name(s): : [facility] pharmacy on [address] Does Patient have transportation to get home and to follow-up medical appointments when discharged from the hospital? : Yes Would patient like to participate in any Care Coordination programs (if applicable): : Not applicable Does the patient have electricity at home? : Yes Does the patient have running water in their house? : Yes Equipment in use: : None Mental health screen: : No mental health history DCP Re-evaluation QUESTION: ANSWER Would patient like to participate in any Care Coordination programs (if applicable): : Not applicable PATIENT: GUERA CEDEÑO ENCOUNTER: [id number] MEDICAL RECORD#: [id number] ADMISSION DATE: 12/31/2020 DISCHARGE DATE: ATTENDING MD: GLENNA HICKEY : AGE: 65 MARITAL STATUS: M DC PLAN ID: [id number] FACILITY: [facility] PRINTED ON: 01/01/21 11:43 CT All edits/amendments must be made on the electronic document DICTATION DATE: 01/01/21 114 SENIOR RESEARCH PROJECT MANAGER: ASHWIN 01/01/21 1143 RPT#: [id number] DC DATE: STATUS: ADM IN [facility] [address] [place] [address] END OF REPORT
[2021-01-01] MEDS ORDERED: ELIQUIS2.5 MG PO (12:28)
[2021-01-01] MEDS ORDERED: OXYIR5 MG PO (12:28)
[2021-01-01] MEDS ORDERED: VISTARIL50 MG PO (12:28)
[2021-01-01 13:51] VITALS: Ht 182.9 cm; Wt 74.8 kg
--- NOTE | 2021-01-01 15:00 | NUR ---
DISCHARGED TO HOME AMBULATORY WITH . DISCHARGE INSTRUCTIONS GIVEN BOTH VERBALLY AND WRITTEN. ALL QUESTIONS ANSWERED. PATIENT AND VERBALIZED UNDERSTANDING OF SAME. REQUESTED AND GIVEN PERCOCET PO FOR PAIN MANAGEMENT AT LEVEL 7. IV TO RIGHT FOREARM D/C WITH CATHETER INTACT. DRESSING CHANGED TO LEFT KNEE. INSTRUCTED IN HOW TO CHANGE. ALL QUESTIONS ANSWERED. 4 EXTRA DRESSINGS SENT HOME WITH PATIENT. NEEDED PRESCRIPTIONS GIVEN TO PATIENT. ALL BELONGINGS WITH PATIENT.
--- NOTE | 2021-01-01 15:21 | MORECARE ---
CASE MANAGEMENT DISCHARGE SUMMARY PATIENT: GUERA CEDEÑO UNIT: [id number] ADM DATE: 12/31/20 AGE: 65 : 54 SEX: M ROOM/BED: D.1213 AUTHOR: MIGUEL ÁNGEL,DOC PHYSICIAN: REFERRING PHYSICIAN: GLENNA RAMIREZ DO DATE OF SERVICE: 01/01/21 Case Management Discharge Planning Summary COMMENTS ENTERED DATE: 01/01/21 9:38 CT COMMENT TYPE: Discharge Planning REVIEWER: Vanessa Silva CM called [employer] and spoke with Chirag, he states they have delivered walker and CPM but will add a BSC to that and deliver that to the hospital today. I called Leeanne at [facility] on [facility] and his first PT VISIT IS SET UP FOR JANUARY 03 AT 1PM. I have informed patient and he states that he will have transportation to his OP PT visits and agrees with plan. Clinical and order faxed to [facility] PT. CM will continue to follow and assist with dc planning/needs. ENTERED DATE: 12/31/20 18:47 CT COMMENT TYPE: Discharge Planning REVIEWER: Adis Morrell CM met with patient to complete DC plan and to evaluate needs. Patient lives independently with his spouse, Adrienne Cedeño, . Patient stated that their home is safe and has electricity and running water. Patient stated that he has no problems paying for medications and his fills his medications at [facility]. Patient stated that his primary care physician is Dr. Woods. At discharge, the patient plans to return home feels this is a safe discharge. CM discussed availability of home health, rehab services, and medical equipment. Patient declined HHS, SNF, and IPR. Patient stated that he would like Outpatient therapy services with [facility] or [facility]. Patient stated that he would like a bedside commode possibly through [facility] or whichever service provided his CPM and Walker that arrived at his home. JACK signed and placed on chart. Patient voiced no other needs at this time and is satisfied with DC plan. Transportation provider at discharge will be with his spouse, Adrienne. CM will continue to follow and will assist as needed with dc plans/needs. ENTERED DATE: 12/31/20 17:19 CT COMMENT TYPE: Discharge Planning REVIEWER: Adis Morrell Late Entry for 1645. PAN delivered, explained, signed by the patient, and placed in chart. Signed form also left with the patient. DCP REVIEW SUMMARY ANTICIPATED D/C DATE: EXPECTED LOS : CASE STATUS: DCP Initiated INITIAL REVIEW: 12/31/2020 INITIAL REVIEWER: Adis Morrell FINAL DISCHARGE DISPOSITION: : FINAL REVIEWER: FINAL REVIEW DATE: DCP Focus Questions & Answers DCP Evaluation QUESTION: ANSWER Patient and/or caregiver agree upon recommended discharge plan? : Yes Family / Caregiver's ability to cope with chronic illness: : a. Adequate (ability to meet patient's medical needs, ensures patient attends medical appts.) Patient's current cognitive status: : *Oriented to person, place, situation, time and present Patient's ability to cope with chronic illness : d. No chronic illness Patient gives permission to discuss discharge plans with: (name, relationship and number) : spouse, Adrienne Cedeño, Does the patient have the ability to pay for or attain post discharge needs / services? : Yes Functional screen assessment: : Basic needs can adequately be met by self Family / Caregiver's ability to cope with chronic illness: : a. Adequate (ability to meet patient's medical needs, ensures patient attends medical appts.) Physical Status: : Independent with ADL's Equipment needed for post hospitalization: : Walker - Rolling Equipment needed for post hospitalization: : Bedside Commode Is there a likelihood that the patient will require additional services to return to the preadmission environment? : Yes Living Arrangements: : Home with Spouse/Significant Other Other Equipment comments: : CPM Patient with capacity for self-care or can be cared for in same environment as prior to hospitalization? : Yes Baseline cognitive status: : *Oriented to person, place, situation, time and present Medication Management: : Patient states can read and understand medication labels Medication Management: : Patient states can afford medications Pharmacy name(s): : [facility] pharmacy on [address] Does Patient have transportation to get home and to follow-up medical appointments when discharged from the hospital? : Yes Would patient like to participate in any Care Coordination programs (if applicable): : Not applicable Does the patient have electricity at home? : Yes Does the patient have running water in their house? : Yes Equipment in use: : None Mental health screen: : No mental health history DCP Re-evaluation QUESTION: ANSWER Would patient like to participate in any Care Coordination programs (if applicable): : Not applicable PATIENT: GUERA CEDEÑO ENCOUNTER: [id number] MEDICAL RECORD#: [id number] ADMISSION DATE: 12/31/2020 DISCHARGE DATE: 01/01/2021 ATTENDING MD: GLENNA HICKEY : AGE: 65 MARITAL STATUS: M DC PLAN ID: [id number] FACILITY: [facility] PRINTED ON: 01/01/21 15:20 CT All edits/amendments must be made on the electronic document DICTATION DATE: 01/01/21 152 SHOCK ABSORPTION FLOOR LAYER: ASHWIN 01/01/21 1520 RPT#: [id number] DC DATE:01/01/21 STATUS: DIS IN [facility] [address] [place] [address] END OF REPORT
== END 2021-01-01 15:00 | disposition home or self-care (01) ==
LOC: D.SDCHOLD 12-31 07:25 → D.M3 12-31 07:25 → OBSVTIME 12-31 07:25 → D.M3 12-31 07:25 → D.SDCHOLD 12-31 10:00 → D.M3 01-01 15:00
PROVIDERS: Family Medicine; ADMIT Orthopaedic Surgery; ATTEND Orthopaedic Surgery
DX: M17.12 Unilateral primary osteoarthritis, left knee (principal); I10 Essential (primary) hypertension; F17.203 Nicotine dependence unspecified, with withdrawal